=== PATIENT | female | born 1990 | race Caucasian/White ===

== ENCOUNTER 2016-06-28 12:38 | Emergency (ER) | payer OTHER ==
[2016-06-28 13:06] VITALS: RESP 18
[2016-06-28 13:35] LABS: RBC URINE 2 /hpf (0-3); URINE BACTERIA RARE (<OCC); URINE BILIRUBIN NEGATIVE (NEGATIVE); URINE BLOOD NEGATIVE (NEGATIVE); URINE COLOR Yellow (YELLOW); URINE GLUCOSE (UA) NORMAL (Normal); URINE KETONE TRACE mg/dL (NEGATIVE); URINE LEUKOCYTE ESTERASE 3+ Leu/uL (Negative); URINE PROTEIN NEGATIVE (NEGATIVE); URINE UROBILINOGEN NORMAL mg/dL (0.2-1.0); WBC URINE 40 /hpf (0-5)
[2016-06-28] MEDS ORDERED: Sodium Chloride 0.9% 1,000 ML IV ONE (13:38)
[2016-06-28] MEDS ORDERED: Sodium Chloride 0.9% 100 ML ONE (13:50)
[2016-06-28 13:57] LABS: BASO % 0.3 % (0.0-2.0); EOS # 0.1 K/uL (0.0-0.7); EOS % 1.5 % (0.0-4.0); HEMATOCRIT 37.4 % (34.0-47.0); LYMPH # 2.1 K/uL (1.0-4.3); LYMPH % 30.8 % (20.0-40.0); MEAN CELL VOLUME 83.7 fL (81.0-99.0); MEAN CORPUSCULAR HEMOGLOBIN 28.1 pg (27.0-31.0); MEAN CORPUSCULAR HGB CONC 33.5 g/dL (33.0-37.0); MEAN PLATELET VOLUME 7.4 fL (7.2-11.7); MONO # 0.5 K/uL (0.0-0.8); MONO % 6.9 % (0.0-10.0); RED CELL DISTRIBUTION WIDTH 13.6 % (11.5-14.5); WHITE BLOOD COUNT 6.8 K/uL (4.8-10.8)
[2016-06-28 14:03] LABS: CHLORIDE 102 mmol/L (98-107)
[2016-06-28 14:04] LABS: POTASSIUM 3.8 mmol/L (3.6-5.2); SODIUM 142 mmol/L (132-148)
[2016-06-28 14:06] LABS: BILIRUBIN,TOTAL 0.6 mg/dL (0.2-1.3); GFR AFRICAN-AMERICAN > 60
[2016-06-28 14:07] LABS: ALB/GLOB RATIO 1.1 (1.0-2.1); ALKALINE PHOSPHATASE 60 U/L (38-126); ALT/SGPT 15 U/L (9-52); AST/SGOT 17 U/L (14-36); BLOOD UREA NITROGEN 6 mg/dL (7-17); CALCIUM 8.6 mg/dl (8.6-10.4); CARBON DIOXIDE 23 mmol/L (22-30); GLUCOSE,RANDOM 85 mg/dL (65-105)
[2016-06-28] MEDS ORDERED: cefTRIAXone (Rocephin) 250 mg Inj IM STA (14:07)
--- NOTE | 2016-06-28 15:18 | C.PDOC ---
History Of Present Illness 26-year-old female, presents to the emergency department with complaints of rectal bleeding. Patient states she has been experiencing bright red blood per rectum w/ bowel movement, that started yesterday. Patient notes associated vaginal "itching."w/ foul smelling discharge and pelvic pain, resulting in her coming to the ED for evaluation. Patient is sexually active with one partner. Denies nausea/vomiting, diarrhea, fevers, chills, dizziness, abdominal pain, or any other associated symptoms. No other complaints at this time. Time Seen by Provider: 06/28/16 13:21 Chief Complaint (Nursing): Abdominal Pain History Per: Patient History/Exam Limitations: no limitations Onset/Duration Of Symptoms: Days Current Symptoms Are (Timing): Still Present Severity: Moderate Location Of Pain/Discomfort: Suprapubic Past Medical History Reviewed: Historical Data, Nursing Documentation, Vital Signs Vital Signs: Last Vital Signs Temp 98.4 F 06/28/16 13:02 Pulse 84 06/28/16 13:02 Resp 18 06/28/16 13:02 BP 99/63 L 06/28/16 13:02 Pulse Ox 99 06/28/16 15:22 - Medical History PMH: Asthma Family History: States: Unknown Family Hx - Social History Hx Alcohol Use: No Hx Substance Use: No Review Of Systems Except As Marked, All Systems Reviewed And Found Negative. Constitutional: Negative for: Fever, Chills Gastrointestinal: Positive for: Hematochezia. Negative for: Nausea, Vomiting Genitourinary: Positive for: Vaginal Discharge, Pelvic Pain Musculoskeletal: Negative for: Back Pain Skin: Negative for: Rash Neurological: Negative for: Weakness, Numbness, Headache, Dizziness Physical Exam - Physical Exam Appears: Non-toxic, No Acute Distress Skin: Warm, Dry Head: Atraumatic, Normacephalic Eye(s): bilateral: Normal Inspection Nose: Normal Oral Mucosa: Moist Lips: Normal Appearing Neck: Normal ROM Cardiovascular: Rhythm Regular Respiratory: Normal Breath Sounds Gastrointestinal/Abdominal: Soft, No Tenderness Back: No CVA Tenderness Extremity: Normal ROM Neurological/Psych: Oriented x3, Normal Speech ED Course And Treatment - Laboratory Results Result Diagrams: 06/28/16 13:52 06/28/16 13:52 O2 Sat by Pulse Oximetry: 99 Disposition Counseled Patient/Family Regarding: Studies Performed, Diagnosis, Need For Followup, Rx Given - Disposition Referrals: [facility] [Outside] Disposition: HOME/ ROUTINE Disposition Time: 15:39 Condition: GOOD Additional Instructions: Follow up with the clinic. Make an appointment today for next week. Prescriptions: Hard Fat/Phenylephrine [place] [Hemorrhoidal 88.7%-0.25%] 1 sup MO BID #6 sup Doxycycline Hyclate 100 mg PO Q12 #14 tab Instructions: Bacterial Vaginosis (ED) Forms: General Discharge Instructions, Work Excuse - Clinical Impression Clinical Impression: Bacterial vaginosis, Rectal bleeding - Scribe Statement The provider has reviewed the documentation as recorded by the Salvadoribjovana Hall All medical record entries made by the Salvadoribjovana were at my direction and personally dictated by me. I have reviewed the chart and agree that the record accurately reflects my personal performance of the history, physical exam, medical decision making, and the department course for this patient. I have also personally directed, reviewed, and agree with the discharge instructions and disposition.
[2016-06-28 16:12] VITALS: BP 104/64; PULSE 86; TEMP 98.5; O2SAT 100
== END 2016-06-28 16:16 | disposition home or self-care (01) ==
LOC: C.ER 12:38
DX: N76.0 Acute vaginitis (principal); K62.5 Hemorrhage of anus and rectum
CPT/HCPCS: 80053; 81001; 83690; 84703; 85025; 87491; 87591; 96360; 96372; 99284; J0696; J7040